=== PATIENT | female | born 1955 | race Caucasian/White ===

== ENCOUNTER 2020-06-17 10:01 | Outpatient (CLI) | payer MEDICARE, SELFPAY | END 2020-06-17 10:02 | disposition home or self-care (01) | LOC: ANHCOVIDVC 10:01 | DX: Z23 Encounter for immunization (principal) | CPT/HCPCS: 0001A; 91300 ==

== ENCOUNTER 2020-07-08 10:04 | Outpatient (CLI) | payer MEDICARE, SELFPAY | END 2020-07-08 10:05 | disposition home or self-care (01) | LOC: ANHCOVIDVC 10:05 | DX: Z23 Encounter for immunization (principal) | CPT/HCPCS: 0002A; 91300 ==

== ENCOUNTER 2022-09-10 12:31 | Outpatient (CLI) | payer MEDICARE, SELFPAY ==
--- NOTE | ~2022-09-10 | MR_ITS ---
EXAMINATION: MR brain/brain stem wo/w con DATE: 09/10/2022 13:27 INDICATION: Meningioma. TECHNIQUE: Magnetic resonance imaging (MRI) of the brain and brainstem was performed without and with 12 mL MultiHance intravenous contrast. COMPARISON: Brain MRI 03/07/2019, head CT 03/06/2019 FINDINGS: There is no acute ischemic infarct or intracranial hemorrhage. There are scattered areas of nonspecific increased T2-weighted signal intensity in the cerebral white matter, which is within nor mal limits for the patient's age. There is a 9 mm enhancing extra-axial mass overlying left frontal l obe, consistent with a meningioma. The ventricles are normal in size. The paranasal sinuses are clear . The orbits are normal. The mastoid air cells are normal. IMPRESSION: 1. Stable 9 mm meningioma overlying the left frontal lobe. Reviewed, dictated and finalized at location A.
== END 2022-09-10 12:32 | disposition home or self-care (01) ==
PROVIDERS: PCP Internal Medicine
DX: D32.0 Benign neoplasm of cerebral meninges (principal); G40.009 Localization-related (focal) (partial) idiopathic epilepsy and epileptic syndromes with seizures of localized onset, not intractable, without status epilepticus
CPT/HCPCS: 70553; A9577

== ENCOUNTER 2023-12-11 10:35 | Outpatient (CLI) | payer MEDICARE, SELFPAY ==
--- NOTE | ~2023-12-11 | DEXA_ITS ---
Bone Density Report Name: KATIA DEGROOT Age: 68 Sex: Female Ethnicity: Radha Date of : 1955 Indication: postmenopausal; screening for osteoporosis; Referring Provider: GARIMA STEVENS Study: Bone densitometry was performed. Exam Date: December 11, 2023 Accession number: [id number] Bone Density: Region BMD T-score Z-score Classification AP Spine(L1-L4) 1.049 0.0 2.1 Normal Femoral Neck (Left) 0.775 -0.7 1.1 Normal Total Hip (Left) 0.884 -0.5 1.0 Normal Femoral Neck (Right) 0.760 -0.8 1.0 Normal Total Hip (Right) 0.931 -0.1 1.4 Normal Total Hip Mean 0.908 -0.3 1.2 Normal World Health Organization criteria for BMD impression classify patients as: Normal (T-score at or above -1.0), Osteopenia (T-score between -1.0 and -2.5), or Osteoporosis (T-score at or below -2.5). 10-year Fracture Risk: FRAX not reported because: All T-scores for Spine Total, Hip Total, Femoral Neck at or above -1.0 Clinical Information Provided by Patient: Patient maximum height was 66 Menopause Age: 54 Drinks caffeinated beverages Onset of menses at age 13 Number of children 1 Impression: The patient has normal bone mass. Discussion: BONE DENSITY IS ABOVE THE MINIMUM DESIRABLE LEVEL AT ALL SKELETAL SITES TESTED. This patient?s bone mineral density is above the minimum desirable level (T-score -1.0 or better) at all sites measured. The patient should follow a healthful lifestyle (good nutrition with adequate calcium and vitamin D, and appropriate weight-bearing exercise). Follow-Up: Consider repeating this study in 5 years or sooner if there is some new clinical indication. Reported by: DONNA on 12/11/2023 11:10:00 AM. Reviewed, dictated and finalized at location A. [facility] HOSPITALJohana
== END 2023-12-11 10:36 | disposition home or self-care (01) ==
LOC: ANHIMG 10:37
PROVIDERS: PCP Internal Medicine; Visit Provider Internal Medicine
DX: Z78.0 Asymptomatic menopausal state (principal)
CPT/HCPCS: 77080

== ENCOUNTER 2023-12-20 12:44 | Outpatient (CLI) | payer MEDICARE, SELFPAY ==
--- NOTE | ~2023-12-20 | MM_ITS ---
EXAMINATION: MM screening aryan BI w claudette HISTORY: Screening mammogram TECHNIQUE: Craniocaudal and mediolateral oblique 3-D tomosynthesis images were obtained and synthetic 2-D images were generated. CAD analysis was submitted and interpreted. COMPARISON: No prior mammogram is available for comparison at this institution. BREAST PARENCHYMAL COMPOSITION:Not Dense. There are scattered areas of fibroglandular density. FINDINGS: There are several small well-circumscribed nodular opacities at the lower, inner left breas t. No parenchymal nodular opacities seen. No suspicious pelvic opacifications. IMPRESSION: Several small circumscribed nodular opacities at the lower, inner left breast. Spot compression view s and ultrasound are recommended for further evaluation. BI-RADS Category 0: Incomplete: Needs additional imaging evaluation. Reviewed, dictated and finalized at [facility]. IMPRESSION: Several small circumscribed nodular opacities at the lower, inner left breast. Spot compression views and ultrasound are recommended for further evaluation. BI-RADS Category 0: Incomplete: Needs additional imaging evaluation.
== END 2023-12-20 12:45 | disposition home or self-care (01) ==
LOC: MICIMG 12:45
PROVIDERS: PCP Internal Medicine; Visit Provider Internal Medicine
DX: Z12.31 Encounter for screening mammogram for malignant neoplasm of breast (principal)
CPT/HCPCS: 77063; 77067

== ENCOUNTER 2024-01-10 09:09 | Outpatient (CLI) | payer MEDICARE, SELFPAY ==
--- NOTE | ~2024-01-10 | MMUS_ITS ---
EXAMINATION: MM diag aryan implant LT w claudette, US breast LT complete HISTORY: Follow-up left breast asymmetries. TECHNIQUE: Additional 3-D tomosynthesis images of the left breast were performed and synthetic 2-D im ages were generated. CAD analysis was submitted and interpreted. High resolution complete left breast ultrasound was performed. COMPARISON: 12/20/2023 BREAST PARENCHYMAL COMPOSITION: Not dense: There are scattered areas of fibroglandular density. FINDINGS: MAMMOGRAPHIC FINDINGS: There are segmental nodular asymmetries projecting from the pectoralis muscle anteriorly towards the lower aspect of the left breast. There are breast implants. Findings are suspicious for sequela of im plant rupture. There is distortion of the left breast with inversion of the nipple. ULTRASOUND: Complete US of all 4 quadrants of the left breast/s and retroareolar region was reviewed. At 4:00, 5. 5 cm from the nipple there is a slightly irregular shaped hypoechoic mass measuring 7 x 3 x 5 mm with heterogeneous internal echotexture texture. No internal vascularity or posterior features. No other masses are identified. There are areas of increased echogenicity with posterior shadowing at 9:00 and near the nipple. IMPRESSION: 1. Slightly irregular shape 7 mm left breast mass at 4:00, 5.5 cm from the nipple. 2. Ultrasound-guided left breast biopsy recommended. BI-RADS category 4, suspicious findings. Reviewed, dictated and finalized at location B. IMPRESSION: 1. Slightly irregular shape 7 mm left breast mass at 4:00, 5.5 cm from the nipp le. 2. Ultrasound-guided left breast biopsy recommended. BI-RADS category 4, suspicious findings.
== END 2024-01-10 09:10 | disposition home or self-care (01) ==
LOC: MICIMG 09:09
PROVIDERS: PCP Internal Medicine; Visit Provider Internal Medicine
DX: R92.8 Other abnormal and inconclusive findings on diagnostic imaging of breast (principal)
CPT/HCPCS: 76641; 77061; 77065; G0279

== ENCOUNTER 2024-02-06 07:35 | Outpatient (CLI) | payer MEDICARE, SELFPAY ==
--- NOTE | ~2024-02-06 | MMUS_ITS ---
EXAMINATION: US breast biopsy LT w image, MM post biopsy diagnostic LT DATE: 02/06/2024 08:51 INDICATION: Left breast mass. TECHNIQUE: The procedure including the risks, benefits, and alternatives was discussed with the patie nt. Risks discussed included bleeding and infection. The patient understood the risks and agreed to p roceed. The skin of the left breast was prepped and draped in usual sterile fashion. Anesthetic was administered with 1% lidocaine at the skin and 1% lidocaine with epinephrine in the deeper tissue. A 10-gauge vacuum-assisted core biopsy needle was then used to obtain 3 core biopsy specimens under co ntinuous sonographic guidance. A Mammotome Hydromark butterfly marker was placed under sonographic gu idance The entry site was cleaned and dressed. There were no immediate complications. A two-view mammogram was obtained to document marker placement. FINDINGS: Ultrasound images demonstrate the needle in a 7 mm mass in the left breast at 4:00. Breast composition: There are scattered areas of fibroglandular density. Mammogram: There is a marker in the left breast at the 4:00 position. IMPRESSION: 1. Successful ultrasound-guided vacuum-assisted biopsy of a left breast mass with post procedure mamm ogram for marker placement. Reviewed, dictated and finalized at location B. IMPRESSION: 1. Successful ultrasound-guided vacuum-assisted biopsy of a left breast mass wi th post procedure mammogram for marker placement.
== END 2024-02-06 07:36 | disposition home or self-care (01) ==
PROVIDERS: PCP Internal Medicine; Visit Provider Internal Medicine
DX: N63.23 Unspecified lump in the left breast, lower outer quadrant (principal)
CPT/HCPCS: 19083; 77065; 88305; A4648

== ENCOUNTER 2024-03-27 12:16 | Outpatient (CLI) | payer MEDICARE, SELFPAY ==
--- NOTE | ~2024-03-27 | MR_ITS ---
EXAMINATION: MR brain/brain stem wo/w con DATE: 03/27/2024 13:57 INDICATION: Meningioma. Epilepsy with complex partial seizures. TECHNIQUE: Magnetic resonance imaging (MRI) of the brain and brainstem was performed without and with 11 mL MultiHance intravenous contrast. COMPARISON: Brain MRI 09/10/2022 FINDINGS: There are scattered areas of nonspecific increased T2-weighted signal intensity in the cere bral white matter, which is within normal limits for the patient's age. There is a 9 mm enhancing ext ra-axial mass overlying left frontal lobe, consistent with a meningioma. There is no acute ischemic i nfarct or intracranial hemorrhage. The ventricles are normal in size. The mastoid air cells are alondra l. The orbits are normal. The paranasal sinuses are clear. IMPRESSION: 1. Stable 9 mm meningioma overlying the left frontal lobe. Reviewed, dictated and finalized at location A. [employer]
== END 2024-03-27 12:17 | disposition home or self-care (01) ==
PROVIDERS: PCP Internal Medicine; Visit Provider Psychiatry & Neurology Neurology
DX: G40.209 Localization-related (focal) (partial) symptomatic epilepsy and epileptic syndromes with complex partial seizures, not intractable, without status epilepticus (principal); R93.0 Abnormal findings on diagnostic imaging of skull and head, not elsewhere classified
CPT/HCPCS: 70553

== ENCOUNTER 2024-04-03 09:44 | Outpatient (CLI) | payer MEDICARE, SELFPAY ==
--- NOTE | ~2024-04-03 | MR_ITS ---
EXAMINATION: MR breast BI wo/w con INDICATION: Ruptured saline implant TECHNIQUE: Axial VIBRANT pre and dynamic post contrast, Sagittal VIBRANT post contrast, Axial T2 STIR ASSET COMPARISON: None CONTRAST: Multihance, 12 cc BREAST COMPOSITION: Scattered fibroglandular tissue FINDINGS: RIGHT BREAST: There is minimal background parenchymal enhancement. No abnormal enhancement is present after contrast administration. No pathologically enlarged axillary or internal mammary lymph nodes a re identified. There is intracapsular breast implant rupture. LEFT BREAST: There is minimal background parenchymal enhancement. No abnormal enhancement is present after contrast administration. No pathologically enlarged axillary or internal mammary lymph nodes ar e identified. There is intracapsular breast implant rupture. IMPRESSION: No evidence of malignancy. Bilateral intracapsular breast implant rupture. BI-RADS Category 2: Benign finding(s). Reviewed, dictated and finalized at location . IVIST MILITARY HISTORY
== END 2024-04-03 09:45 | disposition home or self-care (01) ==
PROVIDERS: PCP Internal Medicine; Visit Provider Plastic Surgery
DX: T85.49XA Other mechanical complication of breast prosthesis and implant, initial encounter (principal)
CPT/HCPCS: 77049; A9577; C8908

== ENCOUNTER 2024-08-07 11:00 | Outpatient (CLI) | payer MEDICARE, SELFPAY ==
--- NOTE | ~2024-08-07 | MR_ITS ---
MRI of the brain Clinical History: Seizure Technique: Axial and sagittal T1-weighted images were acquired. These were followed by axial T2-weigh nat, diffusion weighted, gradient, and FLAIR images. Following intravenous administration of 12 cc Pr oHance gadolinium, T1-weighted fat-sat imaging was performed in the axial, coronal, and sagittal plan es. COMPARISON: 03/27/2024 Findings: There is no acute infarct or intracranial hemorrhage. Mild chronic microvascular ischemic c hanges are present in present in the periventricular white matter bilaterally. Ventricles and subarachnoid spaces are minimally prominent. Orbits are unremarkable. Paranasal sinuse s and mastoid air cells are clear. Major intracranial flow voids are intact. Sagittal midline structures are intact. There is a small enhancing extra-axial lesion at the left frontal convexity, compatible with meningio ma, measuring 1 cm in diameter (coronal postcontrast image 17). This is unchanged from prior exam. IMPRESSION: No acute infarct or intracranial hemorrhage. No acute abnormality. Stable small left cerebral convexity meningioma, as detailed above. Mild chronic microvascular ischemic change. Reviewed, dictated and finalized at location .
--- OUTSIDE RECORDS SUMMARY | 2024-08-08 12:26 | XMS_ITS | Clinical Summary ---
Author Organization [facility] Address [facility] [place] [address] Care Team Providers Care Collar Tacker Name Role Phone Yelena Garcia MD Primary Care Provider [phone] Allergies No known active allergies Medications amLODIPine-benazepr il (LOTREL) 5-10 MG capsule Take 1 capsule by mouth daily. 4 Active atorvastatin (LIPITOR) 40 MG tablet Take 1 tablet (40 mg total) by mouth daily. 4 Active vitamin D3 (CHOLECALCIFEROL) 1.25 mg capsule Take 1 capsule (1.25 mg total) by mouth once a week. 4 Active escitalopram (LEXAPRO) 10 MG tablet Take 1 tablet (10 mg total) by mouth daily. 4 Active levETIRAcetam (KEPPRA) 500 MG tablet Take 1 tablet (500 mg total) by mouth 2 (two) times daily. 4 Active amLODIPine-benazepr il (LOTREL) 5-10 MG capsuleIndications: Primary hypertension Take 1 capsule by mouth daily. 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 60 tablet 11 5 Active atorvastatin (LIPITOR) 40 MG tabletIndications:H yperlipidemia, unspecified hyperlipidemia type Take 1 tablet (40 mg total) by mouth nightly at bedtime. 30 tablet 5 5 Active Active Problems Problem Noted Date Diagnosed Date Severe episode of recurrent major depressive disorder, without psychotic features ([facility]) 07/06/2024 Generalized anxiety disorder 12/12/2017 Situational depression 12/12/2017 Closed head injury, initial encounter 10/11/2017 Grief 10/11/2017 Hypertension 10/11/2017 Syncope 10/11/2017 Hyperglycemia 08/28/2009 Essential hypertension, benign 07/19/2008 Hyperlipidemia 07/19/2008 Postmenopausal 07/19/2008 Encounters Date Type Department Care Team Description 07/13/2024 Scan HEALTH INFO SRVCS Scanned, Doc Med Group 07/06/2024 11:40 AM CDT Office Visit [facility] Medical [facility] Multispecialty Care - [address], [address] [place] [address] oM Willson MD Follow Up 07/06/2024 Travel from Last 3 Months Family History Medical History Relation Comments No Known Problems Father No Known Problems Mother Relation Status Comments Father Mother Social History Tobacco Use Types Packs/Day Years Used Date Smoking Tobacco: Never Passive Smoke Exposure: Never Smokeless Tobacco: Never Tobacco Cessation:Counseling Given: Yes Alcohol Use Standard Drinks/Week Comments Yes 0 (1 standard drink = 0.6 oz pur e alcohol) occational wine PHQ-2 Answer Date Recorded Patient Health Questionnaire-2 Score 0 07/06/2024 Comments No Sex and Gender Information Value Date Recorded Sex Assigned at Not on file Legal Sex Female 10:57 AM CDT Gender Identity Not on file Sexual Orientation Not on file Last Filed Vital Signs Vital Sign Reading Time Taken Comments Blood Pressure 95/70 07/06/2024 11:59 AM CDT Pulse 66 07/06/2024 11:59 AM CDT Temperature 36.7 C (98.1 F) 07/06/2024 11:59 AM CDT Respiratory Rate 14 07/06/2024 11:59 AM CDT Oxygen Saturation 98% 07/06/2024 11:59 AM CDT Inhaled Oxygen Concentration - - Weight 59 kg (130 lb) 07/06/2024 11:59 AM CDT Height 167.6 cm (5' 6 ) 07/06/2024 11:59 AM CDT Body Mass Index 20.98 07/06/2024 11:59 AM CDT Plan of Treatment Upcoming Encounters Date Type Department Care Team (Late st Contact Info) Description 09/23/2024 11:00 AM CDT Office Visit [facility] Family Medicine - [address], [address] [place] [id number] Graciela VII, Marciano Brock MD [address] [place] [address], [address] [place] [address] 01/04/2025 1:00 PM CDT Office Visit [facility] Multispecialty Care - [facility] [address] [facility], [address] [place] [address] Mo Willson MD [address] [place] [id number] Health Maintenance Due Date Last Done Comments Colorectal Cancer Screening Colonoscopy (10 Years) 1955 Hepatitis C 1972 Mammogram Screening 1994 Annual Medicare Wellness Visit 09/07/2019 Dexa Scan (General) 09/07/2019 COVID-19 Vaccine ( season) 2024 12/15/2023, 07/05/2023, 01/01/2023, Additional history exists DTaP, Tdap and Td Vaccines (2 - Td or Tdap) 08/01/2033 08/02/2023 Pneumococcal Vaccine: 50+ Years Completed 12/18/2021, 06/23/2019 RSV Immunization or 60+ Years Completed 08/19/2023 Zoster Vaccines Completed 2023, 07/05/2023 PHQ-2 (Physician [place]) Completed 07/06/2024 Meningococcal B Vaccine Aged Out No l onger eligible based on patient's age to complete this topic Meningococcal Vaccine Aged Out No amrik hina eligible based on patient's age to complete this topic RSV Immunizations Under 20 Months Aged Out No longer eligible based on patient's age to complete this topic Insurance MEDICARE [facility] Care Teams Collar Tacker Relationship Specialty Start Date End Date Yelena Garcia MD [address] [place] [address] PCP - General INTERNAL MEDICINE 02/24/24
--- OUTSIDE RECORDS SUMMARY | 2024-08-08 12:26 | XMS_ITS | Patient Health Record ---
Author Organization [facility] Address [address] [place] [address] Care Team Providers Care Extermination Inspector Name Role Phone Yelena Garcia MD Primary Care Provider Unavailab Lena Manuel Unavailable [phone] Ynes Lipscomb Unavailable [phone] Migration, Provider Unavailable Unavailable Allergies No Known Allergies Reason For Referral No Information Medications Medication SIG (Take, Route, Frequency, Duration) Notes Start Date End Date Status amLODIPine Besy-Benazepril HCl 5-10 MG Oral 06/12/2023 Active levETIRAcetam 500 MG Oral 06/12/2023 Active Atorvastatin Calcium 40 MG Oral 06/12/2023 Active Escitalopram Oxalate 10 MG 1 tablet Oral Once a day for 90 days Active Social History Tobacco Use: Social History Observation Description Date Details (start date - stop date) Never Smoker NA - NA Sex Assigned At : Social History Observation Description Sex Assigned At Female Household Question Answer Notes Marital status: Number of children in household: One son who has Tobacco Control (Standard) Question Answer Notes Tobacco use: Nonsmoker Problems Problem Type SNOMED Code ICD Code Onset Dates Problem Status W/U Status Risk Notes Problem Severe recurrent major depression without psychotic features (26414510) Major depressive disorder, 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 [address] [place] [address] 12/11/2023 Ynes Deisi Major depressive disorder, recurrent severe without psychotic features F33.2 ; Generalized anxiety disorder F41.1 and Post-traumatic stress disorder, chronic F43.12 [facility] [place] [id number] [facility] [address] [address] 05/13/2024 Ynes Lipscomb Major depressive disorder, recurrent severe without psychotic features F33.2 ; Generalized anxiety disorder F41.1 and Post-traumatic stress disorder, chronic [facility]43.12 [facility] [address] [facility] [address] [place] [address] 08/24/[address] [facility] [address] [facility] [address] [place] [address] 08/25/2023 Provider Migration Assessments Encounter Date Diagnosis (ICD Code) Assessment Notes Treatment Notes Treatment Clinical Notes Section Notes 12/11/2023 Major depressive disorder, recurrent severe without psychotic features (ICD-10 - F33.2) 12/11/2023 Generalized anxiety disorder (ICD-10 - F41.1) 05/13/2024 Major depressive disorder, recurrent severe without psychotic features (ICD-10 - F33.2) SSRI/SNRI side effects discussed including but not limited to, gastric upset, nausea, vomiting, diarrhea and/or constipation, weight changes, sexual side effects including loss of libido, increased suicidal thoughts/behavio rs in children and young adults, and serotonin syndrome. 05/13/2024 Generalized anxiety disorder (ICD-10 - F41.1) 12/11/2023 Post-traumatic stress disorder, chronic (ICD-10 - F43.12) Stable 05/13/2024 Post-traumatic stress disorder, chronic (ICD-10 - F43.12) Stable 12/11/2023 Other Stable, continue escitalopram 10mg daily. Patient educated on all medications including potential benefits, side effects, risks. Educated on proper dosing schedule and importance of compliance. 05/13/2024 Other Stable, cont escitalopram 10mg daily for mood, anxiety. Patient educated on all medications including potential benefits, side effects, risks. Educated on proper dosing schedule and importance of compliance. Counseling with Lena on as needed basis. -Assessment and treatment plan reviewed with patient. -Compliance with treatment plan importance discussed. -Discussed the risks/benefits of this medication -Discussed medication side effects. -Contact office if symptoms worsen. -Discussed that it can take up to 6-8 weeks to see full therapeutic effects of psychotropic medications. -Crisis prevention hotline 348. Plan Of Treatment Next Appt Details Provider Name:Ynes Lipscomb, 11/09/2024 01:00:00 PM, [address], [address], [place], [address], Insurance Providers Payer Name Payer Address Payer Phone Subscriber Number Group Number Insured Name Patient Relationship to Insured Coverage Start Date Coverage End Date Medicare-I l Medicare [address] [facility] [phone] [id number] KATIA DEGROOT Self - patient is the insured [facility] [address] [place] [address] [id number] KATIA DEGROOT Self - patient is the insured Medical (General) History Medical History History ICD Code Problems: Chronic post-traumatic stress disorder Generalized anxiety disorder Severe recurrent major depression withou t psychotic features Brain neuroma Seizure High cholesterol Hospitalization History Reason Date(Month/Year) No hx [facility] admission
== END 2024-08-07 11:01 | disposition home or self-care (01) ==
PROVIDERS: PCP Internal Medicine; Visit Provider Psychiatry & Neurology Neurology
DX: G40.209 Localization-related (focal) (partial) symptomatic epilepsy and epileptic syndromes with complex partial seizures, not intractable, without status epilepticus (principal); R93.0 Abnormal findings on diagnostic imaging of skull and head, not elsewhere classified
CPT/HCPCS: 70553; A9579